=== PATIENT | female | born 2000 | race Hispanic/Latino ===

== ENCOUNTER 2024-09-19 00:22 | Emergency (ER) | payer SELFPAY ==
[~2024-09-19] VITALS: Ht 165.1 cm; Wt 75.7 kg
[2024-09-19] MEDS: ondanSETRON 4MG INJ IVP ONE (00:46)
[2024-09-19] MEDS: LACTATED RINGERS 1000ML 1,000 ML IV ONE (00:46)
--- NOTE | 2024-09-19 00:47 | ERN ---
General Chief Complaint: OB<20 weeks gest. Stated Complaint: C/O ABD PAIN X 2 DAYS W/ DECREASED MOVEMENT Time Seen by MD: 00:25 History of Present Illness Initial Comments 23F, 17 weeks , , presents for pelvic cramping, nausea & vomiting, decreased PO intake, and decrease movement for the past 48 hours or so. She denies any fevers, cough/congestion, vaginal bleeding, diarrhea, or urinary symptoms. Patient wants to make sure the baby is ok. She had a normal US at 13 weeks gestation. Med hx: asthma No surgical history. Previous vaginal delivery without complication. Allergies: Coded Allergies: codeine (Unverified Allergy, Unknown, 09/19/24) Past Medical History Past Medical History: Asthma Past Surgical History: None Female( History) LMP: May 21, 2024 : 2 Para: 1 Aborts: 0 ROS Dictation CONSTITUTIONAL: No chills, no fever, no weakness, no diaphoresis, no malaise. HEAD/FACE: No signs of trauma. EENT: No eye pain, no blurred vision, no tearing, no double vision, no ear pain, no ear discharge, no nose pain, no nasal congestion, no throat pain, no throat swelling, no mouth pain. RESPIRATORY: No cough, no orthopnea, no SOB, no stridor, no wheezing. CARDIOVASCULAR: No chest pain, no edema, no palpitations, no syncope. GASTROINTESTINAL/ABDOMINAL: Low abdominal cramping and vomiting GENITOURINARY: No abnormal discharge, no dysuria, no frequent urination, no hematuria. No complaints of pain in the genitals. MUSCULOSKELETAL: No back pain, no gout, no joint pain, no joint swelling, no muscle pain, no muscle stiffness, no neck pain. INTEGUMENTARY: No change in color, no change in hair/nails, no dryness, no lesion, no lumps, no rash. NEUROLOGICAL/PSYCH: No anxiety, not depressed, no emotional problem, no headache, no numbness, no pre-existing deficit, no history of seizures, no christy mors, no weakness. HEMATOLOGIC/LYMPHATIC: Not anemic, no history of blood clots, no apparent bleeding, no bruising, glands not swollen. All Systems Negative, Except as Noted. Physical Exam Physical Exam Dictation VITAL SIGNS: Reviewed. GENERAL APPEARANCE: Alert, oriented x3, no acute distress. HEAD AND FACE: Non-traumatic. EYES: PERRL, pink conjunctivas, eyelid no trauma, anterior chamber clear. EARS: Pinnas intact and no signs of trauma or erythema. Ear canals clear and no discharge. TMs no erythema. NOSE: No discharge, no bleeding. OROPHARYNX: Mouth normal, teeth no caries, tongue pink. Pharynx clear, no erythema. Tonsils no exudates, no abscesses noted. Mucous membrane moist. NECK: Supple, non-tender, no thyromegaly, no masses, no JVD, no bruits. BREAST: Deferred. CHEST: No tenderness, no crepitus, no paradoxical movement, no retractions. LUNGS: Clear, well-ventilated, symmetric, no rales, no wheezing, no rhonchi, no stridor, good breath sounds bilaterally. HEART: Regular rate, regular rhythm, no murmur, no gallops. VASCULAR: No peripheral edema. ABDOMEN: Soft, positive bowel sounds, nondistended, no guarding, nontender, no rebound, no masses no hepatomegaly, no splenomegaly, no Gore's sign, no he rnias. RECTAL: Deferred. GENITAL: Deferred. NEUROLOGICAL: Normal speech, gross motor function intact, gross sensory functio n intact. MUSCULOSKELETAL: Neck nontender, full range of motion, back nontender, full range of motion. EXTREMITIES: Nontender, full range of motion. SKIN: Color pink, dry, no turgor, no rash, no lacerations, no abrasions, no contusions. LYMPHATICS: Deferred. Results Laboratory and Microbiology Lab and Micro Result Laboratory Tests Test 09/19/24 00:45 White Blood Count 12.1 K/uL (4.8-10.8) H Red Blood Count 3.86 MIL/uL (4.00-5.50) L Hemoglobin 11.5 g/dL (12.0-16.0) L Hematocrit 33.8 % (36-48) L Mean Corpuscular Volume 87.6 fL (80-100) Mean Corpuscular Hemoglobin 29.8 pg (27.0-33.0) Mean Corpuscular Hemoglobin Concent 34.0 g/dL (32.0-36.0) Red Cell Distribution Width 12.7 % (11.0-15.5) Platelet Count 347 K/uL (130-400) Mean Platelet Volume 9.4 fL (7.5-10.5) Immature Granulocyte % (Auto) 0.5 % (0-1) Neutrophils (%) (Auto) 61.3 % (40.0-77.0) Lymphocytes (%) (Auto) 30.3 % (21.0-51.0) Monocytes (%) (Auto) 6.1 % (3.0-13.0) Eosinophils (%) (Auto) 1.3 % (0.0-8.0) Basophils (%) (Auto) 0.5 % (0.0-5.0) Neutrophils # (Auto) 7.4 K/uL (1.8-7.7) Lymphocytes # (Auto) 3.7 K/uL (1.0-4.8) Monocytes # (Auto) 0.7 K/uL (0.1-1.0) Eosinophils # (Auto) 0.16 K/uL (0.00-0.70) Basophils # (Auto) 0.06 K/uL (0.00-0.20) Absolute Immature Granulocyte (auto 0.06 K/uL (0-1) Nucleated Red Blood Cells 0.0 % (0.0-0.19) Urine Color YELLOW (YELLOW) Urine Appearance CLOUDY (CLEAR) H Urine pH 7.0 (5.0-8.0) Urine Specific [place] 1.015 (1.001-1.031) Urine Protein NEGATIVE mg/dL (NEGATIVE) Urine Glucose (UA) NEGATIVE mg/dL (NEGATIVE) Urine Ketones NEGATIVE mg/dL (NEGATIVE) Urine Occult Blood SMALL (NEGATIVE) H Urine Nitrate NEGATIVE (NEGATIVE) Urine Bilirubin NEGATIVE mg/dL (NEGATIVE) Urine Urobilinogen 0.2 mg/dL (0.2-1.0) Urine Leukocyte Esterase NEGATIVE [place]/uL Urine RBC 2-5 /HPF (0-1) H Urine WBC 2-5 /HPF (0-1) H Urine Squamous Epithelial Cells FEW /HPF (0-2) Urine Bacteria None /HPF (None Seen) Sodium Level 134 mmol/L (136-145) L Potassium Level 3.5 mmol/L (3.5-5.1) Chloride Level 101 mmol/L (101-111) Carbon Dioxide Level 24 mmol/L (21-32) Blood Urea Nitrogen 7 mg/dL (7-18) Creatinine 0.4 mg/dL (0.5-1.0) L Glomerular Filtration Rate Calc 144 mL/min (>90) Random Glucose 97 mg/dL (70-105) Total Calcium 9.0 mg/dL (8.5-10.1) Total Bilirubin 0.3 mg/dL (0.2-1.0) Direct Bilirubin 0.1 mg/dL (0.0-0.3) Aspartate Amino Transf (AST/SGOT) 11 U/L (10-37) Alanine Aminotransferase (ALT/SGPT) 14 U/L (12-78) Alkaline Phosphatase 53 U/L (50-136) Total Protein 7.0 g/dL (6.0-8.3) Albumin 3.0 g/dL (3.5-5.0) L Lipase 24 U/L (16-77) MDM CC: Decreased movement some pelvic cramping in early , vomiting/morning sickness Historian: Patient Comorbidities: Asthma, 18 weeks Limitations by social determinants of health: Uninsured Differential diagnosis: Miscarriage, dehydration, electrolyte abnormality, other Vital signs: Stable. Clinical exam nontoxic. No abdominal tenderness. Labs ( independently ordered and interpreted by me ): Leukocytosis [id number] no shift or bands. Mild anemia hemoglobin 11.5. BMP normal, liver function normal, lipase normal. Urinalysis unremarkable. Ultrasound (independently interpreted by me ): Normal-appearing IUP, heart rate 140, normal movement, age 17 weeks and one day. Treatment in the ER: LR 1 L IV, Zofran 4 mg IV. Patient is p.o. tolerant nontoxic in appearance with stable vital signs. No major abnormalities. We will DC with doxylamine/pyridoxine, ondansetron, recommend Ob follow up as an outpatient. ED Course Orders Procedure Category Date Status Time Cbc With Differential LAB 09/19/24 Complete 00:30 Basic Metabolic Panel LAB 09/19/24 Complete 00:30 Urinalysis Profile LAB 09/19/24 Complete 00:30 Hepatic Function Panel LAB 09/19/24 Complete 00:30 Lipase LAB 09/19/24 Complete 00:30 Us Ob >14 Weeks US 09/19/24 Taken 00:30 Lactated Ringers PHA 09/19/24 Complete 1000ml (Lactated 00:30 Ondansetron 4mg Inj PHA 09/19/24 Complete (Zofran 4mg Inj) 00:30 Current Medications Medications (Trade) Dose Ordered Sig/Laurie Route PRN Reason Start Time Stop Time Status Last Admin Dose Admin Lactated Ringer's 1,000 ml @ 0 mls/hr ONCE ONCE IV 09/19/24 00:30 09/19/24 00:32 DC 09/19/24 00:46 Ondansetron HCl (zoFRAN 4MG INJ) 4 mg ONCE ONCE IVP 09/19/24 00:30 09/19/24 00:32 DC 09/19/24 00:46 Vital Signs Date Time Temp Pulse Resp B/P (MAP) Pulse Ox O2 Delivery O2 Flow Rate FiO2 09/19/24 01:03 98.4 77 18 118/74 98 Room Air* 0 21 09/19/24 00:25 98.8 87 20 112/71 99 Room Air DX & DISP Disposition: Discharge Departure Impression: Primary Impression: Early stage of Additional Impression: Vomiting Condition: Stable Scripts Ondansetron (Ondansetron Odt) 4 Mg Tab.rapdis 1 TAB PO Q6HPRN PRN for nausea/vomiting for 4 Days, #16 TAB 0 Refills Prov: DERIAN DIMAS DO 09/19/24 Doxylamine/Pyridoxine HCl (Diclegis Dr 10-10 mg Tablet) 10 Mg-10 Mg Tablet.dr 2 TAB PO HS for 30 Days, #60 TAB 0 Refills Prov: DERIAN DIMAS DO 09/19/24 Additional Instructions: There are no dangerous findings on your workup here today. The ultrasound showed a normal-appearing dated 17 weeks and one day. The heart rate is 140 beats per minute, which is in the normal range. Your lab work (CBC, BMP, liver function tests, lipase, urinalysis) is normal. For the vomiting, I have prescribed Diclegis. Take two tabs once or twice per day as needed. As we discussed, you can ask the pharmacist are there are generic alternatives to this medication. I have also prescribed ondansetron dissolvable tabs. You can take this up to 3 times a day as needed for nausea and vomiting. Be sure to drink plenty of liquids. Please follow up with your baseball coach as needed. Referrals: SELF,REFERRAL (PCP) DERIAN DIMAS DO Sep 19, 2024 00:46
[2024-09-19 00:56] LABS: APPEARANCE,URINE CLOUDY (CLEAR); BILIRUBIN,URINE NEGATIVE (NEGATIVE); COLOR,URINE YELLOW (YELLOW); GLUCOSE, URINE (UA) NEGATIVE (NEGATIVE); KETONES,URINE NEGATIVE (NEGATIVE); LEUKOCYTE ESTERASE ,URINE NEGATIVE Leu/uL (NEGATIVE); NITRATE,URINE NEGATIVE (NEGATIVE); OCCULT BLOOD,URINE SMALL (NEGATIVE); PROTEIN,URINE NEGATIVE (NEGATIVE); UROBILINOGEN,URINE 0.2 mg/dL (0.2-1.0)
[2024-09-19 00:57] LABS: BASOPHILS # (AUTO) 0.06 K/uL (0.00-0.20); BASOPHILS % (AUTO) 0.5 % (0.0-5.0); EOSINOPHILS # (AUTO) 0.16 K/uL (0.00-0.70); EOSINOPHILS % (AUTO) 1.3 % (0.0-8.0); HEMATOCRIT 33.8 % (36-48); IMMATURE GRANULOCYTE ABSOLUTE 0.06 K/uL (0-1); LYMPHOCYTES # (AUTO) 3.7 K/uL (1.0-4.8); LYMPHOCYTES % (AUTO) 30.3 % (21.0-51.0); MEAN CORPUSCULAR HEMOGLOBIN 29.8 pg (27.0-33.0); MEAN CORPUSCULAR VOLUME 87.6 fL (80-100); MONOCYTES # (AUTO) 0.7 K/uL (0.1-1.0); MONOCYTES % (AUTO) 6.1 % (3.0-13.0); NEUTROPHILS # (AUTO) 7.4 K/uL (1.8-7.7); NEUTROPHILS % (AUTO) 61.3 % (40.0-77.0); PLATELET COUNT (AUTO) 347 K/uL (130-400); RED BLOOD CELL COUNT(AUTO) 3.86 MIL/uL (4.00-5.50); RED CELL DISTRIBUTION WIDTH 12.7 % (11.0-15.5); WHITE BLOOD COUNT (AUTO) 12.1 K/uL (4.8-10.8)
[2024-09-19 00:58] LABS: CREATININE 0.4 mg/dL (0.5-1.0); POTASSIUM 3.5 mmol/L (3.5-5.1)
[2024-09-19 01:02] LABS: BILIRUBIN,DIRECT 0.1 mg/dL (0.0-0.3); BILIRUBIN,TOTAL 0.3 mg/dL (0.2-1.0)
[2024-09-19 01:03] VITALS: BP 118/74; PULSE 77; RESP 18; TEMP 98.4; O2SAT 98
[2024-09-19 01:03] LABS: ADD UA MICROSCOPIC YES
[2024-09-19 01:07] LABS: MUCUS,URINE RARE LPF (None Seen); SQUAMOUS EPITHELIAL CELL,UR FEW /HPF (0-2)
[2024-09-19] MEDS ORDERED: DOXY1TAB3 PO (01:29)
[2024-09-19] MEDS ORDERED: ONDA-243 PO (01:29)
--- NOTE | 2024-09-19 11:12 | HMCIMG ---
ULTRASOUND OB LIMITED INDICATION: Decreased movement with vomiting and cramping. TECHNIQUE: Real-time transabdominal approach ultrasound examination of the pelvis was performed by the electrical line worker, and images subsequently made available for review. COMPARISON: None FINDINGS: Single live intrauterine gestation in transverse lie and variable/breech presentation. heart rate = 140 beats per minute. Left lateral grade 0 placenta is present. Marginal placenta previa is noted. The amniotic fluid volume is normal at 10.8 cm. Limited anatomy secondary to gestational age. Estimated sonographic gestational age = 17 weeks +/- 1 day. Estimated weight = 169 grams +/- 25 grams. IMPRESSION: 1. Single live intrauterine gestation in transverse lie and variable/breech presentation, and with heart rate of 140 bpm. 2. Marginal placenta previa. 3. Parameters as reported.
== END 2024-09-19 01:44 | disposition home or self-care (01) ==
LOC: EDH 00:22
DX: O21.9 Vomiting of pregnancy, unspecified (principal); J45.909 Unspecified asthma, uncomplicated; Z3A.18 18 weeks gestation of pregnancy; Z88.5 Allergy status to narcotic agent
CPT/HCPCS: 99285; 96374; 76805; 96361; 80076; 80048; 83690; 85025; 81001; 36415; J7120; J2405

== ENCOUNTER 2025-04-04 13:35 | Emergency (ER) | payer MEDICAID ==
[~2025-04-04] VITALS: Ht 160 cm; Wt 81.2 kg
[~2025-04-04 13:35] MED LIST: DOXY1TAB3 PO; ONDA-243 PO
--- NOTE | 2025-04-04 13:49 | ERN ---
ED Note History of Present Illness Stated Complaint: COUGH Chief Complaint: Cough Time Seen by MD: 13:40 Dictation: PATIENT IS A 24-YEAR-OLD FEMALE HERE WITH COMPLAINTS OF FLU-LIKE SYMPTOMS TO INCLUDE MILD SORE THROAT, DRY COUGH AND BODY ACHES FOR THE LAST 2-3 DAYS. NO NAUSEA VOMITING NO DIARRHEA NO LOSS OF TASTE OR SMELL. SHE STATES SHE IS CONCERNED BECAUSE SHE HAS A 2-MONTH-OLD AT HOME, SHE IS NOT AT THIS TIME. NO PRIMARY CARE DOCTOR. Allergies: Coded Allergies: codeine (Unverified Allergy, Unknown, 09/19/24) Home Meds Active Scripts Ondansetron (Ondansetron Odt) 4 Mg Tab.rapdis, 1 TAB PO Q6HPRN PRN for nausea/vomiting for 4 Days, #16 TAB 0 Refills Prov:DERIAN DIMAS DO 09/19/24 Doxylamine/Pyridoxine HCl (Diclegis Dr 10-10 mg Tablet) 10 Mg-10 Mg Tablet.dr, 2 TAB PO HS for 30 Days, #60 TAB 0 Refills Prov:DERIAN DIMAS DO 09/19/24 Past Medical History Past Medical History: No Pertinent History Surgical History: None LMP: Mar 20, 2025 : 2 Para: 2 Aborts: 0 RN Note Reviewed/Agreed w/PFSH: Yes Review of System Dictation CONSTITUTIONAL: NEGATIVE EXCEPT FOR HPI FEVER CHILLS HEAD/FACE: NEGATIVE EXCEPT FOR HPI EENT: NEGATIVE EXCEPT FOR HPI SORE THROAT WITH PAINFUL SWALLOWING RESPIRATORY: NEGATIVE EXCEPT FOR HPI DRY COUGH GASTROINTESTINAL/ABDOMINAL: NEGATIVE EXCEPT FOR HPI GENITOURINARY: NEGATIVE EXCEPT FOR HPI MUSCULOSKELETAL: NEGATIVE EXCEPT FOR HPI INTEGUMENTARY: NEGATIVE EXCEPT FOR HPI NEUROLOGICAL/PSYCH: NEGATIVE EXCEPT FOR HPI HEMATOLOGIC/LYMPHATIC: NEGATIVE EXCEPT FOR HPI ALL SYSTEMS NEGATIVE, EXCEPT NOTED ABOVE. 13 POINT REVIEW OF SYSTEMS ASSESSED AND ALL NEGATIVE EXCEPT FOR ABOVE. Initial Vital Sign VS Vital Signs Date Time Temp Pulse Resp B/P (MAP) Pulse Ox O2 Delivery O2 Flow Rate FiO2 04/04/25 13:38 98.1 78 16 117/70 97 Room Air 04/04/25 13:41 0 21 Physical Exam Dictation VITAL SIGNS REVIEWED GENERAL APPEARANCE: ALERT, ORIENTED X 3, MILD ACUTE DISTRESS, WELL DEVELOPED, NOURISHED. HEAD AND FACE: NON-TRAUMATIC. EYES: PERRL, PINK CONJUNCTIVAS, EYELID NO TRAUMA, ANTERIOR CHAMBER WITH ARCUS SENILIS. EARS: PINNAS INTACT AND NO SIGNS OF TRAUMA OR ERYTHEMA EAR CANALS CLEAR AND NO DISCHARGE TM NO ERYTHEMA NOSE: NO DISCHARGE, NO BLEEDING. OROPHARYNX: MOUTH NORMAL, TONGUE PINK, UVULA MIDLINE PHARYNX CLEAR, MILD PHARYNGEAL ERYTHEMA, TONSILS NO EXUDATES, NO ABSCESSES NOTED, MUCOUS MEMBRANE MOIST , VOICE IS CLEAR NECK: SUPPLE, NON-TENDER, NO THYROMEGALY, NO MASSES, NO JVD, NO BRUITS BREAST:DEFERRED CHEST:NO TENDERNESS, NO CREPITUS, NO PARADOXICAL MOVEMENT, NO RETRACTIONS LUNGS:CLEAR, WELL-VENTILATED, SYMMETRIC, NO RALES, NO WHEEZING, NO RHONCHI, NO STRIDOR, GOOD BREATH SOUNDS BILATERALLY HEART: REGULAR RATE, REGULAR RHYTHM, NO MURMUR, NO GALLOPS VASCULAR: NO PERIPHERAL EDEMA, ABDOMEN: SOFT, POSITIVE BOWEL SOUNDS, NONDISTENDED, NO GUARDING, NONTENDER, NO REBOUND, NO MASSES NO HEPATOMEGALY, NO SPLENOMEGALY, NO LIPSCOMB'S SIGN, NO HERNIAS. RECTAL: DEFERRED GENITAL: DEFERRED NEUROLOGICAL: NORMAL SPEECH, MOTOR FUNCTION INTACT, SENSORY FUNCTION INTACT MUSCULOSKELETAL: NECK NONTENDER, FULL RANGE OF MOTION, BACK NONTENDER, FULL RANGE OF MOTION, EXTREMITIES: NONTENDER, FULL RANGE OF MOTION SKIN: COLOR PINK, DRY, NO TURGOR, NO RASH, NO LACERATIONS, NO ABRASIONS, NO CONTUSIONS. LYMPHATIC: DEFERRED Results (Laboratory/Radiology) Laboratory/Radiology Laboratory Tests Test 04/04/25 15:33 Influenza Type A Antigen Negative For Type A Influenza Type B Antigen Negative For Type B SARS-CoV-2 Antigen (Rapid) PRESUMPTIVE NEGATIVE Group A Streptococcus Rapid negative (NEGATIVE) Labs Reviewed?: Yes ED Course ED Course Orders Procedure Category Date Status Time Covid19 (Sars Antigen LAB 04/04/25 Complete Rapid) 13:48 Influenza Type A & B, LAB 04/04/25 Complete Rapid 13:48 Rapid (Group A Strep) LAB 04/04/25 Complete 13:48 Vital Signs Date Time Temp Pulse Resp B/P (MAP) Pulse Ox O2 Delivery O2 Flow Rate FiO2 04/04/25 15:53 98.1 78 16 117/70 97 Room Air* 0 21 04/04/25 13:41 98.1 78 16 117/70 97 Room Air* 0 21 04/04/25 13:38 98.1 78 16 117/70 97 Room Air 1715/PATIENT AWARE FOR RESULTS OF FLU COVID AND STREP. WE WILL BE DISCHARGED HOME WITH TREATMENT FOR ACUTE PHARYNGITIS UNSPECIFIED GIVEN AZITHROMYCIN 500 MG DAILY FOR FIVE DAYS TYLENOL [id number] FOR NEEDED FOR FEVER PAIN AND SEE HER DOCTOR. Medical Decision Making MDM MEDICAL DISCHARGE MAKING BASED ON SWABS FOR FLU COVID AND STREP. ALL SWABS NEGATIVE PATIENT WILL BE TREATED EMPIRICALLY FOR ACUTE PHARYNGITIS UNSPECIFIED WITH THE AZITHROMYCIN 500 DAILY FOR FIVE DAYS TOLD FOLLOW UP WITH HER PRIMARY CARE DOCTOR TYLENOL [id number] NEEDED FOR PAIN AND FEVER DX & DISP Disposition: Discharge Departure Impression: Primary Impression: Acute pharyngitis, unspecified Condition: Stable Scripts Azithromycin (Zithromax Tri-Masoud) 500 Mg Tablet 500 MG PO DAILY for 5 Days, #5 TAB Prov: KIRK LO NP 04/04/25 Additional Instructions: FOLLOW-UP WITH PRIMARY CARE PROVIDER IN 1 TO 2 DAYS. TAKE MEDICATIONS DIRECTED HERE IN THE EMERGENCY ROOM. OKAY TO CONTINUE HOME MEDICATIONS UNLESS OTHERWISE DISCUSSED DURING YOUR VISIT IN THE EMERGENCY ROOM TODAY. RETURN TO YOUR NEAREST EMERGENCY ROOM IF SYMPTOMS WORSEN OR IF THERE IS NO IMPROVEMENT. CALL 911 IF YOU NEED IMMEDIATE ASSISTANCE. TAKE TYLENOL OR MOTRIN [id number] NEEDED AND IF NO CONTRAINDICATIONS ARE PRESENT. INCREASE ORAL HYDRATION. A WOUND CULTURE OR URINE CULTURE WAS ORDERED HERE IN THE EMERGENCY ROOM DEPARTMENT PLEASE FOLLOW-UP WITH PRIMARY CARE PROVIDER AND ADVISE THEM TO GET REPEAT PORTS FROM OUR FACILITY. IF YOU HAD ANY HEENA WRAP/SPLINTS THAT WERE APPLIED HERE, PLEASE DO NOT REMOVE THEM UNTIL YOU SEE YOUR PRIMARY CARE OR SPECIALTY. TAKE TYLENOL [id number] NEEDED FOR FEVER PAIN. TAKE AZITHROMYCIN DAILY DIRECTED FOR THE NEXT FIVE DAYS. INCREASE YOUR FLUID INTAKE. SUGGEST DELSYM/[id number] NEEDED FOR COUGH. Referrals: SELF,REFERRAL (PCP) Time of Disposition: 17:16 I have reviewed the case, and I agree with, Diagnosis and Plan KIRK LO NP Apr 04, 2025 13:49
[2025-04-04 15:46] LABS: RAPID GROUP A STREP negative (NEGATIVE)
[2025-04-04 15:58] LABS: COVID19 (SARS ANTIGEN RAPID) PRESUMPTIVE NEGATIVE (NEGATIVE)
[2025-04-04 16:07] LABS: INFLUENZA TYPE A Negative For Type A (NEGATIVE); INFLUENZA TYPE B Negative For Type B (NEGATIVE)
[2025-04-04] MEDS ORDERED: AZIT500T2 PO (17:17)
[2025-04-04 17:30] VITALS: BP 119/68; PULSE 74; RESP 16; TEMP 98.1; O2SAT 97
== END 2025-04-04 17:31 | disposition home or self-care (01) ==
LOC: EDH 13:35
DX: J02.9 Acute pharyngitis, unspecified (principal); Z88.5 Allergy status to narcotic agent; Z20.822 Contact with and (suspected) exposure to COVID-19
CPT/HCPCS: 87426; 87804; 87880; 99283

== ENCOUNTER 2025-04-30 18:45 | Emergency (ER) | payer MEDICAID ==
[~2025-04-30] VITALS: Ht 160 cm; Wt 81.4 kg
[~2025-04-30 18:45] MED LIST changes: +AZIT500T2 PO
[2025-04-30 20:50] VITALS: BP 106/72; PULSE 72; RESP 16; TEMP 98.1; O2SAT 98
--- NOTE | 2025-04-30 21:03 | HMCIMG ---
EXAM: CR Right Ankle, 3 views CLINICAL HISTORY: Pain. COMPARISON: None provided. FINDINGS: No acute fracture or aggressive appearing osseous lesion. Joint spaces are within normal limits. No radiographic evidence of joint effusion. The soft tissues are unremarkable. IMPRESSION: No acute bony abnormality is evident. /[place]
--- NOTE | 2025-04-30 21:20 | ERN ---
ED Note History of Present Illness Stated Complaint: RIGHT ANKLE INJURY Chief Complaint: Ankle Problem Time Seen by MD: 18:51 Time Seen by Midlevel: 18:51 Dictation: The patient is a 24-year-old female with no past medical history who presents to the emergency department with complaints of right ankle pain onset 1:50 p.m. today after the wooden floor she was standing on gave up on her right foot causing her right foot to going to the whole of the floor. Patient denies any falls or any other injuries. Allergies: Coded Allergies: codeine (Unverified Allergy, Unknown, 09/19/24) Home Meds Active Scripts Azithromycin (Zithromax Tri-Masoud) 500 Mg Tablet, 500 MG PO DAILY for 5 Days, #5 TAB Prov:KIRK LO [employer]UE[employer] RELATIONS AGENT 04/04/25 Ondansetron (Ondansetron Odt) 4 Mg Tab.rapdis, 1 TAB PO Q6HPRN PRN for nausea/vomiting for 4 Days, #16 TAB 0 Refills Prov:DERIAN DIMAS DO 09/19/24 Doxylamine/Pyridoxine HCl (Diclegis Dr 10-10 mg Tablet) 10 Mg-10 Mg Tablet.dr, 2 TAB PO HS for 30 Days, #60 TAB 0 Refills Prov:DERIAN DIMAS DO 09/19/24 Past Medical History Past Medical History: No Pertinent History Additional Past Medical Hx: denies pmhx Surgical History: None : 2 Para: 2 Aborts: 0 RN Note Reviewed/Agreed w/PFSH: Yes Review of System Dictation Constitutional: Negative for fever,chills, and weight loss Eyes: Negative for injury, pain,redness, and discharge ENT: Negative for injury,pain or swelling Cardiovascular: Negative for chest pain, palpitations, and edema Respiratory: Negative for shortness of breath, cough, and wheezing, Abdomen/GI: Negative for abdominal pain, nausea, vomiting, diarrhea, and constipation Back: Negative for injury and pain : Negative for injury, bleeding and discharge MS/Extremity: Positive for right ankle pain Skin: Negative for rash, and discoloration Neuro: Negative for headache, weakness, numbness, tingling, and seizure Psych: Negative for suicide ideation, homicidal ideation, and hallucinations Initial Vital Sign VS Vital Signs Date Time Temp Pulse Resp B/P (MAP) Pulse Ox O2 Delivery O2 Flow Rate FiO2 9/2/25 18:50 97.7 75 16 107/75 98 Room Air 0 04/30/25 18:52 21 Physical Exam Dictation Vital Signs reviewed General Appearance: Alert, oriented x 3, no acute distress, well developed, nourished. Head and Face: non-traumatic. Eyes: PERRL, pink conjunctivas, eyelid no trauma, anterior chamber with arcus senilis. Ears: Pinnas intact and no signs of trauma or erythema ear canals clear and no discharge TM no erythema Nose: No discharge, no bleeding. Oropharynx: Mouth normal, tongue pink. pharynx clear,no erythema, tonsils no exudates, no abscesses noted, mucous membrane moist Neck: Supple, non-tender, no thyromegaly, no masses, no JVD, no bruits Breast:Deferred Chest:No tenderness, no crepitus, no paradoxical movement, no retractions Lungs:Clear, well-ventilated, symmetric, no rales, no wheezing, no rhonchi, no stridor, good breath sounds bilaterally Heart: Regular rate, regular rhythm, no murmur, no gallops Vascular: no peripheral edema, dorsalis pedis 3+ bilaterally Abdomen: Soft, positive bowel sounds, nondistended, no guarding, nontender, no rebound, no masses no hepatomegaly, no splenomegaly, no Gore's sign, no hernias. Rectal: Deferred Genital: Deferred Neurological: Normal speech, motor function intact, sensory function intact Musculoskeletal: Neck nontender, full range of motion, back nontender, full range of motion, Extremities: nontender, full range of motion Mild swelling to right ankle, no open wounds Skin: Color pink, dry, no turgor, no rash, no lacerations, no abrasions, no contusions. Lymphatic: Deferred Results (Laboratory/Radiology) Laboratory/Radiology REASON: pain ORDERING PHYSICIAN: OLVIN GONZALES [employer] PROCEDURE: [id number] - ANKLE COMP 3VWS RT EXAM: CR Right Ankle, 3 views CLINICAL HISTORY: Pain. COMPARISON: None provided. FINDINGS: No acute fracture or aggressive appearing osseous lesion. Joint spaces are within normal limits. No radiographic evidence of joint effusion. The soft tissues are unremarkable. IMPRESSION: No acute bony abnormality is evident. /[place] Labs Reviewed?: Yes ED Course ED Course Orders Procedure Category Date Status Time Ankle Comp 3vws Rt RAD 04/30/25 Resulted 19:03 Ibuprofen 600 Mg PHA 04/30/25 Complete Tablet (Motrin) 19:30 Current Medications Medications (Trade) Dose Ordered Sig/Laurie Route PRN Reason Start Time Stop Time Status Last Admin Dose Admin Ibuprofen (moTRIN) 600 mg ONCE ONCE PO 04/30/25 19:30 04/30/25 19:31 DC 04/30/25 20:49 Vital Signs Date Time Temp Pulse Resp B/P (MAP) Pulse Ox O2 Delivery O2 Flow Rate FiO2 04/30/25 20:50 98.1 72 16 106/72 98 Room Air* 0 21 04/30/25 18:52 97.7 75 16 107/75 98 Room Air* 0 21 04/30/25 18:50 97.7 75 16 107/75 98 Room Air 0 Medical Decision Making MDM The patient is a 24-year-old female with no past medical history who presents to the emergency department with complaints of right ankle pain onset 1:50 p.m. today after the wooden floor she was standing on gave up on her right foot causing her right foot to going to the whole of the floor. Patient denies any falls or any other injuries. X-ray showed no acute fractures. Patient is ambulatory, neurovascularly intact. Patient will be discharged to follow up with PCP. Differential diagnosis: Ankle fracture, ankle sprain, ankle contusion Need for hospitalization: Patient does not meet criteria for hospitalization. There are no social concerns with this patient. DX & DISP Disposition: Discharge Departure Impression: Primary Impression: Right ankle pain Condition: Stable Additional Instructions: Your x-ray showed no fractures. You have an ankle sprain. Please follow up with the primary doctor in 1-2 days. Rest avoid activities that cause pain. Ice- apply cold pack, bag of ice, or bag of frozen vegetables on your extremity every 1-2 hours for 15 minutes each time. Put a thin towel between the ice and your skin. Use the ice for at least 6 hours after your injury. Compression - you want to have your extremity under slight pressure by having it wrapped in an elastic bandage. This helps reduce swelling and supports the injured extremity. Elevation - keep your extremity raised above the level of your heart. To do this you can put some foot on some pillows or blankets while laying down on the table or chair where sitting down. FOLLOW-UP WITH PRIMARY CARE PROVIDER IN 1 TO 2 DAYS. TAKE MEDICATIONS DIRECTED HERE IN THE EMERGENCY ROOM. OKAY TO CONTINUE HOME MEDICATIONS UNLESS OTHERWISE DISCUSSED DURING YOUR VISIT IN THE EMERGENCY ROOM TODAY. RETURN TO YOUR NEAREST EMERGENCY ROOM IF SYMPTOMS WORSEN OR IF THERE IS NO IMPROVEMENT. CALL 911 IF YOU NEED IMMEDIATE ASSISTANCE. TAKE TYLENOL [id number] NEEDED AND IF NO CONTRAINDICATIONS ARE PRESENT. INCREASE ORAL HYDRATION. A WOUND CULTURE OR URINE CULTURE WAS ORDERED HERE IN THE EMERGENCY ROOM DEPARTMENT PLEASE FOLLOW-UP WITH PRIMARY CARE PROVIDER AND ADVISE THEM TO GET REPEAT PORTS FROM OUR FACILITY. IF YOU HAD ANY HEENA WRAP/SPLINTS THAT WERE APPLIED HERE, PLEASE DO NOT REMOVE THEM UNTIL YOU SEE YOUR PRIMARY CARE OR SPECIALTY. Referrals: SELF,REFERRAL (PCP) ROYA BENJAMIN MD Time of Disposition: 21:19 I have reviewed the case, and I agree with, Diagnosis and Plan OLVIN GONZALES [facility] Apr 30, 2025 21:20
== END 2025-04-30 21:28 | disposition home or self-care (01) ==
LOC: EDH 18:45
DX: M25.571 Pain in right ankle and joints of right foot (principal); Z88.5 Allergy status to narcotic agent; Z79.899 Other long term (current) drug therapy
CPT/HCPCS: 73610; 99283